=== PATIENT | female | born 1960 | race Caucasian/White ===

== ENCOUNTER 2020-08-15 09:19 | Emergency (ER) | payer BC ==
[2020-08-15 10:29] LABS: RED BLOOD COUNT 4.39 M/UL (4.00-5.10)
[2020-08-15 10:48] LABS: BUN/CREATININE RATIO 14 (0-10)
== END 2020-08-15 14:55 | disposition home or self-care (01) ==
LOC: ER1 09:19
PROVIDERS: Physician Assistant
DX: U07.1 COVID-19 (principal); J12.82 Pneumonia due to coronavirus disease 2019; E11.9 Type 2 diabetes mellitus without complications; I10 Essential (primary) hypertension
CPT/HCPCS: 71045; 80053; 85025; 85379; 99283; M0239

== ENCOUNTER → 2020-08-29 | Outpatient (CLI) | payer BC | LOC: KOH-I 14:14 | DX: U07.1 COVID-19 (principal); J12.82 Pneumonia due to coronavirus disease 2019; R91.8 Other nonspecific abnormal finding of lung field | CPT/HCPCS: 71046 ==

== ENCOUNTER → 2021-07-02 | Outpatient (CLI) | payer BC | LOC: KOH-I 09:56 | DX: M54.9 Dorsalgia, unspecified (principal); M25.562 Pain in left knee; M25.561 Pain in right knee; M17.0 Bilateral primary osteoarthritis of knee; M51.36 Other intervertebral disc degeneration, lumbar region | CPT/HCPCS: 72100; 73562 ==

== ENCOUNTER → 2021-07-07 | Outpatient (CLI) | payer BC | LOC: US 08:18 | DX: K74.60 Unspecified cirrhosis of liver (principal); K76.0 Fatty (change of) liver, not elsewhere classified | CPT/HCPCS: 76700 ==

== ENCOUNTER → 2021-08-05 | Outpatient (CLI) | payer BC | LOC: KOH-I 10:57 | DX: M25.511 Pain in right shoulder (principal); M25.512 Pain in left shoulder; M19.012 Primary osteoarthritis, left shoulder; M19.011 Primary osteoarthritis, right shoulder | CPT/HCPCS: 73030 ==